=== PATIENT | female | born 1990 | race Caucasian/White ===

== ENCOUNTER → 2021-01-27 | Outpatient (CLI) | payer OTHER | LOC: LAB 15:44 | DX: J02.9 Acute pharyngitis, unspecified (principal) ==

== ENCOUNTER → 2021-10-09 | Outpatient (CLI) | payer OTHER | LOC: RAD 14:54 | DX: R53.1 Weakness (principal); R20.0 Anesthesia of skin; R29.898 Other symptoms and signs involving the musculoskeletal system ==